=== PATIENT | male | born 1995 | race Caucasian/White ===

== ENCOUNTER 2017-01-31 10:16 | Emergency (ER) | payer MEDICARE, MEDICAID ==
[~2017-01-31] VITALS: Ht 180.3 cm; Wt 147.4 kg
[~2017-01-31 10:16] MED LIST: CEPH500C PO; CETI10TA17 PO; CLON-316 PO; DEXM10TA; ESCI20TA2 PO; ESCI20TA38 PO; FAMO20TA5 PO; GUAI120013 PO; HALO2TAB PO; HALO5TAB PO; LAMO100T69 PO; LAMO150T2 PO; LURA80TA PO; ONDA-42 SL; OXYC-12 PO; PRED20TA PO; SERT50TA; TOPI15CA6; VORT10TA PO
--- OUTSIDE RECORDS SUMMARY | 2017-01-31 10:24 | XMS REPORT | Continuity of Care Document ---
Author Author [facility] Organization [facility] Address Unknown Phone Unavailable Care Team Providers Care Umbrella Mender Name Role Phone Self, Referral PCP Unavailable Source Comments Some departments are not documenting in the electronic medical record. If you do not see the information that you expected, contact Release of Information in the Health Information Management department at [phone] for further assistance in locating additional records.[facility] Active Allergies and Adverse Reactions Allergen Noted Date Severity Reactions Comments Codeine 04/19/2010 High NAUSEA AND VOMITING Sulfa (Sulfonamide 07/05/2006 Medium Allergy recorded in SMS: Antibiotics) Sulfa~Reactions: HIVES Current Medications Prescription Sig. Disp. Refills Start End Date Status Date dexmethylphenidate ER (+) Take 5 mg by mouth Daily Active (FOCALIN XR) 5 mg PO With Lunch. capsule dexmethylphenidate Take 15 mg by mouth Every Active (FOCALIN XR) 15 mg PO Morning. capsule sertraline (ZOLOFT) 25 mg Take 25 mg by mouth Every Active PO tablet Morning. Take with zoloft 100 mg sertraline (ZOLOFT) 100 Take 100 mg by mouth Active mg PO tablet Every Morning. Take with zoloft 25 mg topiramate (TOPAMAX) 25 Take 25 mg by mouth Twice Active mg PO tablet Daily. Take every morning and bedtime olanzapine (ZYPREXA Take 2.5 mg by mouth At Active ZYDIS) 5 mg PO tablet Bedtime Daily. niacin 500 mg PO tablet Take 500 mg by mouth At Active Bedtime Daily. Active Problems Problem Noted Date Mood disorder (HCC) 04/20/2010 Social History Tobacco Use Types Packs/Day Years Used Date Never Smoker Alcohol Use Drinks/Week oz/Week Comments No Last Filed Vital Signs Vital Sign Reading Time Taken Blood Pressure 117/56 04/24/2010 10:00 AM CDT Pulse 68 04/24/2010 10:00 AM CDT Temperature 36.8 C (98.2 F) 04/24/2010 10:00 AM CDT Respiratory Rate - - Height 1.651 m (5' 5") 04/19/2010 3:22 PM CDT Weight 102.059 kg (225 lb) 04/19/2010 3:22 PM CDT Body Mass Index 37.44 04/19/2010 3:22 PM CDT Oxygen Saturation - - Plan of Care Health Maintenance Due Date Last Done Comments Physical (Comprehensive) 2001 Exam Pertussis Vaccine 2005 Tetanus Vaccine 10/27/2011 Influenza Vaccine 03/22/2017 Results from Last 3 Months Not on file
--- OUTSIDE RECORDS SUMMARY | 2017-01-31 10:25 | XMS REPORT | Continuity of Care Document ---
Author Author [facility] Address Unknown Phone Unavailable Allergies Active Description Code Type Severity Reaction Onset Reported/Identified Relationship to Patient Clinical Status Yes codeine [id number] Drug Allergy Mild UPSET STOMACH 02/06/2008 Yes codeine Drug Allergy N/A N/A 08/18/2014 Medications Problems Date Dx Coded Attending Type Code Diagnosis Diagnosed By 05/19/2013 JORDIN LOZANO, DARINEL Hamlin Ot 703.0 INGROWING NAIL 06/08/2013 DARINEL BRENNER MD Ot V58.31 ENCOUNTER FOR CHANGE OR REMOVAL OF SURGI 08/18/2014 JUNIOR HERNANDEZ 296.62 MO BIPOLAR I MIXED MODERATE 08/18/2014 JUNIOR HERNANDEZ 317 MENTAL RETARDATION-MILD 08/31/2014 Ot 278.00 08/31/2014 Ot 299.80 08/31/2014 Ot 300.3 08/31/2014 Ot 780.60 08/31/2014 Ot 784.0 08/31/2014 Ot 314.01 08/31/2014 Ot V58.69 08/31/2014 Ot V58.83 08/31/2014 DARINEL BRENNER MD Ot 703.0 08/31/2014 DARINEL BRENNER MD Ot V72.84 08/31/2014 PAMELA WHITLEY APRN Ot 789.06 ABDOMINAL PAIN, EPIGASTRIC 09/11/2014 Ot 278.00 09/11/2014 Ot 299.80 09/11/2014 Ot 300.3 09/11/2014 Ot 780.60 09/11/2014 Ot 784.0 09/11/2014 Ot 314.01 09/11/2014 Ot V58.69 09/11/2014 Ot V58.83 09/11/2014 DARINEL BRENNER MD Ot 703.0 09/11/2014 DARINEL BRENNER MD Ot V72.84 09/11/2014 Ot 465.9 ACUTE URI NOS 09/11/2014 Ot 786.2 COUGH 12/25/2014 Ot 278.00 12/25/2014 Ot 299.80 12/25/2014 Ot 300.3 12/25/2014 Ot 780.60 12/25/2014 Ot 784.0 12/25/2014 Ot 314.01 12/25/2014 Ot V58.69 12/25/2014 Ot V58.83 12/25/2014 JORDIN LOZANO, DARINEL Hamlin Ot 703.0 12/25/2014 JORDIN LOZANO, DARINEL Hamlin Ot V72.84 12/25/2014 PAMELA WHITLEY AUDIOVISUAL LIBRARIAN Ot 920 CONTUSION FACE/SCALP/NCK 12/25/2014 PAMELA WHITLEY AUDIOVISUAL LIBRARIAN Ot 959.01 HEAD INJURY, NOS 12/25/2014 PAMELA WHITLEY AUDIOVISUAL LIBRARIAN Ot E000.8 OTHER EXTERNAL CAUSE STATUS 12/25/2014 PAMELA WHITLEY AUDIOVISUAL LIBRARIAN Ot E849.7 ACCID IN RESIDENT INSTIT 12/25/2014 PAMELA WHITLEY AUDIOVISUAL LIBRARIAN Ot E917.4 STAT OB W/O SUB FALL NEC 05/06/2015 Ot 278.00 05/06/2015 Ot 299.80 05/06/2015 Ot 300.3 05/06/2015 Ot 780.60 05/06/2015 Ot 784.0 05/06/2015 Ot 314.01 05/06/2015 Ot V58.69 05/06/2015 Ot V58.83 05/06/2015 JORDIN LOZANO, DARINEL Hamlin Ot 703.0 05/06/2015 JORDIN LOZANO, DARINEL Hamlin Ot V72.84 09/17/2015 RAY LOZANO, ZACKERY Teran Ot F84.5 ASPERGER'S SYNDROME 09/17/2015 RAY LOZANO, ZACKERY Teran Ot S80.211A ABRASION, RIGHT KNEE, INITIAL ENCOUNTER 09/17/2015 RAY LOZANO, ZACKERY Teran Ot W01.0XXA FALL SAME LEV FROM SLIP/TRIP W/O STRIKE 09/17/2015 RAY LOZANO, ZACKERY Teran Ot Y92.512 SUPERMARKET, STORE OR MARKET PLACE 09/17/2015 ZACKERY BELL MD Ot Y99.8 OTHER EXTERNAL CAUSE STATUS 09/17/2015 Ot 278.00 09/17/2015 Ot 299.80 09/17/2015 Ot 300.3 09/17/2015 Ot 780.60 09/17/2015 Ot 784.0 09/17/2015 Ot 314.01 09/17/2015 Ot V58.69 09/17/2015 Ot V58.83 09/17/2015 JORDIN OLZANO, DARINEL Hamlin Ot 703.0 09/17/2015 JORDIN LOZANO, DARINEL Hamlin Ot V72.84 09/20/2015 Ot 278.00 09/20/2015 Ot 299.80 09/20/2015 Ot 300.3 09/20/2015 Ot 780.60 09/20/2015 Ot 784.0 09/20/2015 Ot 314.01 09/20/2015 Ot V58.69 09/20/2015 Ot V58.83 09/20/2015 JORDIN LOZANO, DARINEL Hamlin Ot 703.0 09/20/2015 JORDIN LOZANO, DARINEL Hamlin Ot V72.84 05/15/2016 Ot 314.01 ATTN DEFICIT W HYPERACT 05/15/2016 Ot V58.69 OT MED,LT,CURRENT USE 05/15/2016 Ot V58.83 ENCOUNTER FOR THERAPEUTIC DRUG MONITORIN 05/15/2016 JORDIN LOZANO, DARINEL Hamlin Ot 703.0 INGROWING NAIL 05/15/2016 JORDIN LOZANO, DARINEL Hamlin Ot V72.84 EXAM PRE-OPERATIVE NOS 05/15/2016 JENNIFER MOSELEY Ot F84.5 ASPERGER'S SYNDROME 05/15/2016 JENNIFER MOSELEY Ot R46.81 OBSESSIVE-COMPULSIVE BEHAVIOR 05/15/2016 JENNIFER MOSELEY Ot Z79.899 OTHER FCI (CURRENT) DRUG THERAPY 05/16/2016 JENNIFER MOSELEY Ot F84.5 ASPERGER'S SYNDROME 05/16/2016 JENNIFER MOSELEY Ot R46.81 OBSESSIVE-COMPULSIVE BEHAVIOR 05/16/2016 JENNIFER MOSELEY Ot Z79.899 OTHER FCI (CURRENT) DRUG THERAPY 05/21/2016 JENNIFER MOSELEY Ot F84.5 ASPERGER'S SYNDROME 05/21/2016 JENNIFER MOSELEY Ot R46.81 OBSESSIVE-COMPULSIVE BEHAVIOR 05/21/2016 JENNIFER MOSELEY Ot Z79.899 OTHER INCIDENT RESPONSE ENGINEER (CURRENT) DRUG THERAPY Procedures Code [place] [address] PSYCH DIAG EVAL W/MED SRVCS 09/03/2014 Results Test Result Range Complete urinalysis with reflex to culture - 05/15/16 11:45 Urine color determination YELLOW NRG Urine clarity determination SLIGHTLY CLOUDY NRG Urine pH measurement by test strip 7 5- 9 Specific gravity of urine by test strip 1.010 1.016-1.022 Urine protein assay by test strip, semi-quantitative NEGATIVE NEGATIVE Urine glucose detection by automated test strip NEGATIVE NEGATIVE Erythrocytes detection in urine sediment by light microscopy 2+ NEGATIVE Urine ketones detection by automated test strip NEGATIVE NEGATIVE Urine nitrite detection by test strip NEGATIVE NEGATIVE Urine total bilirubin detection by test strip NEGATIVE NEGATIVE Urine urobilinogen measurement by automated test strip (mass/volume) NORMAL NORMAL Urine leukocyte esterase detection by dipstick NEGATIVE NEGATIVE Automated urine sediment erythrocyte count by microscopy (number/high power field) [HPF] NRG Automated urine sediment leukocyte count by microscopy (number/high power field ) NONE NRG Bacteria detection in urine sediment by light microscopy NEGATIVE NRG Squamous epithelial cells detection in urine sediment by light microscopy NONE NRG Crystals detection in urine sediment by light microscopy NONE NRG Casts detection in urine sediment by light microscopy NONE NRG Mucus detection in urine sediment by light microscopy NEGATIVE NRG Complete urinalysis with reflex to culture NO NRG Urine drug screening test - 05/15/16 11:45 Urine phencyclidine detection by screening method NEGATIVE NEGATIVE Urine benzodiazepines detection by screening method NEGATIVE NEGATIVE Urine cocaine detection NEGATIVE NEGATIVE Urine amphetamines detection by screening method NEGATIVE NEGATIVE Urine methamphetamine detection by screening method NEGATIVE NEGATIVE Urine cannabinoids detection by screening method NEGATIVE NEGATIVE Urine opiates detection by screening method NEGATIVE NEGATIVE Urine barbiturates detection NEGATIVE NEGATIVE Screening urine tricyclic antidepressants detection NEGATIVE NEGATIVE Urine methadone detection by screening method NEGATIVE NEGATIVE Urine oxycodone detection NEGATIVE NEGATIVE Urine propoxyphene detection NEGATIVE NEGATIVE Urine buprenophrine screen NEGATIVE NEGATIVE Complete blood count (CBC) with automated white blood cell (WBC) differential - 05/15/16 12:00 Blood leukocytes automated count (number/volume) 9.8 10*3/ uL 4.3-11.0 Blood erythrocytes automated count (number/volume) 5.41 10*6 /uL 4.35-5.85 Venous blood hemoglobin measurement (mass/volume) 15.5 g/dL 13.3-17.7 Blood hematocrit (volume fraction) 44 % 40-54 Automated erythrocyte mean corpuscular volume 82 [foz_us] 80-99 Automated erythrocyte mean corpuscular hemoglobin (mass per erythrocyte) 29 pg 25-34 Automated erythrocyte mean corpuscular hemoglobin concentration measurement ( mass/volume) 35 g/dL 32-36 Automated erythrocyte distribution width ratio 12.7 % 10.0-14.5 Automated blood platelet count (count/volume) 251 10*3/uL 130-400 Automated blood platelet mean volume measurement 10.4 [foz_ us] 7.4-10.4 Automated blood neutrophils/100 leukocytes 76 % 42-75 Automated blood lymphocytes/100 leukocytes 15 % 12-44 Blood monocytes/100 leukocytes 8 % 0-12 Automated blood eosinophils/100 leukocytes 0 % 0-10 Automated blood basophils/100 leukocytes 1 % 0-10 Blood neutrophils automated count (number/volume) 7.4 10*3 1.8-7.8 Blood lymphocytes automated count (number/volume) 1.5 10*3 1.0-4.0 Blood monocytes automated count (number/volume) 0.8 10*3 0.0-1.0 Automated eosinophil count 0.0 10*3/uL 0.0-0.3 Automated blood basophil count (count/volume) 0.1 10*3/uL 0.0-0.1 Comprehensive metabolic panel - 05/15/16 12:00 Serum or plasma sodium measurement (moles/volume) 134 mmol/ L 135-145 Serum or plasma potassium measurement (moles/volume) 4.1 mmol/L 3.6-5.0 Serum or plasma chloride measurement (moles/volume) 100 mmol /L 98-107 Carbon dioxide 25 mmol/L 21-32 Serum or plasma anion gap determination (moles/volume) 9 mmol/L 5-14 Serum or plasma urea nitrogen measurement (mass/volume) 8 mg /dL 7-18 Serum or plasma creatinine measurement (mass/volume) 0.86 mg /dL 0.60-1.30 Serum or plasma urea nitrogen/creatinine mass ratio 9 NRG Serum or plasma creatinine measurement with calculation of estimated glomerular filtration rate > NRG Serum or plasma glucose measurement (mass/volume) 126 mg/dL 70-105 Serum or plasma calcium measurement (mass/volume) 9.6 mg/dL 8.5-10.1 Serum or plasma total bilirubin measurement (mass/volume) 0.4 mg/dL 0.1-1.0 Serum or plasma alkaline phosphatase measurement (enzymatic activity/volume) 138 U/L 40-136 Serum or plasma aspartate aminotransferase measurement (enzymatic activity/ volume) 20 U/L 5-34 Serum or plasma alanine aminotransferase measurement (enzymatic activity/volume ) 34 U/L 0-55 Serum or plasma protein measurement (mass/volume) 7.9 g/dL 6.4-8.2 Serum or plasma albumin measurement (mass/volume) 4.4 g/dL 3.2-4.5 Serum or plasma salicylates measurement (mass/volume) - 05/15/16 12:00 Serum or plasma salicylates measurement (mass/volume) < mg/ dL 5.0-20.0 Serum or plasma acetaminophen measurement (mass/volume) - 05/15/16 12:00 Serum or plasma acetaminophen measurement (mass/volume) < ug /mL 10-30 Serum or plasma ethanol measurement (mass/volume) - 05/15/16 12:00 Serum or plasma ethanol measurement (mass/volume) < mg/dL <10 Serum or plasma thyrotropin measurement by detection limit <=0.05 miu/l (units/ volume) - 05/15/16 12:00 Serum or plasma thyrotropin measurement by detection limit <=0.05 miu/l (units/ volume) 0.84 u[iU]/mL 0.35-4.94 Encounters ACCT No. Visit Date/Time Discharge Status Pt. Type Provider Facility Loc./Unit Complaint [id number] 08/18/2014 14:55:00 08/18/2014 23: 59:59 [facility] Outpatient JUNIOR HERNANDEZ
--- NOTE | 2017-01-31 10:47 | ED GI ---
General Chief Complaint: Foreign Body Stated Complaint: POSS F/O IN BOTTOM Nursing Triage Note: PT STATES THAT HE SAT IN A CHAIR WITH HIS UNDERWARE ON AND A TOY OR A SPRING WENT UP HIS RECTUM. STATES HE DID HAVE A BM AFTER BUT IS UNSURE IF ANYTHING IS STILL THERE. Sepsis Screen: No Definite Risk Source of Information: Patient Exam Limitations: No Limitations History of Present Illness Time Seen By Provider: 10:45 Initial Comments 21-year-old autistic gentleman presents to the ER accompanied by his mother with reports of a possible foreign body in his rectum. Initially states that this was a spring out of the recliner. Then, he states that he was sitting in the recliner and he sat on one of his younger sister's action figures which shot some sort of a toy through his underwear into his anus. He states this must of been [place] made due to the force with which shot through his underwear into his anus, it couldn't have been Citizen [place] made he states. He did have a bowel movement after this happened this morning but states he did not see the action figure,. He is uncertain as to whether or not it is still in him. Timing/Duration: 4-6 Hours Severity/Quality: Moderate Radiation: No Radiation Activities at Onset: None Associated Symptoms: Nausea/Vomiting Allergies and Home Medications Allergies Coded Allergies: Codeine (Verified Adverse Reaction, Mild, UPSET STOMACH, 02/06/08) Home Medications Cetirizine Hcl 10 Mg Tablet, 10 MG PO DAILY, (Reported) Clonidine Hcl 0.1 Mg Tab.er.12h, 0.1 MG PO TID, (Reported) Famotidine 20 Mg Tablet, 20 MG PO DAILY, (Reported) Guaifenesin 1,200 Mg Tbmp.12hr, 1,200 MG PO BID, (Reported) Haloperidol 5 Mg Tablet, 1 EACH PO UD, (Reported) Lamotrigine 150 Mg Tablet, 150 MG PO DAILY, (Reported) Lurasidone Hcl 80 Mg Tablet, 40 MG PO BID, (Reported) Prednisone 20 Mg Tablet, 20 MG PO DAILY, (Reported) Vortioxetine Hydrobromide 10 Mg Tablet, 10 MG PO DAILY, (Reported) Review of Systems Constitutional: see HPI EENTM: No Symptoms Reported Respiratory: No Symptoms Reported Cardiovascular: No Symptoms Reported Gastrointestinal: See HPI, Denies Abdominal Pain, Denies Constipated, Denies Diarrhea, Denies Nausea Genitourinary: No Symptoms Reported Musculoskeletal: no symptoms reported Skin: no symptoms reported Psychiatric/Neurological: No Symptoms Reported Endocrine: No Symptoms Reported Hematologic/Lymphatic: No Symptoms Reported Past Pnxslbn-Tykhls-Orkdti Hx Patient Social History Alcohol Use: Denies Use Recreational Drug Use: No Smoking Status: Never a Smoker Recent Foreign Travel: No Contact w/Someone Who Travel: No Recent Infectious Disease Expo: No Recent Hopitalizations: Yes (for autisim) Seasonal Allergies Seasonal Allergies: No Surgeries HX Surgeries: Yes (t and a , tubes in ears) Surgeries: Adenoidectomy, Ear Surgery, Tonsillectomy Respiratory Hx Respiratory Disorders: No Cardiovascular Hx Cardiac Disorders: No Neurological Hx Neurological Disorders: No Reproductive System Hx Reproductive Disorders: No Genitourinary Hx Genitourinary Disorders: No Gastrointestinal Hx Gastrointestinal Disorders: No Musculoskeletal Hx Musculoskeletal Disorders: Yes (INGROWN TOENAIL) Endocrine Hx Endocrine Disorders: No HEENT HX ENT Disorders: No Cancer Hx Cancer: No Psychosocial Hx Psychiatric Problems: Yes (asperger high functioning autisum. OCD) Behavioral Health Disorders: ODD, Depression Integumentary HX Skin/Integumentary Disorder: No Blood Transfusions Hx Blood Disorders: No Adverse Reaction to a Blood Tr: No Family Medical History Significant Family History: No Pertinent Family Hx Physical Exam Vital Signs VS - Last 72 Hours, by Label 01/31/17 10:31 Temp 97.0 Pulse 73 Resp 20 B/P (MAP) 136/79 Pulse Ox 98 O2 Delivery Room Air Capillary Refill : Less Than 3 Seconds General Appearance: WD/WN, no apparent distress, obese, other (autistic) HEENT: PERRL/EOMI, normal ENT inspection Neck: non-tender, full range of motion Respiratory: no respiratory distress, no accessory muscle use Cardiovascular: regular rate, rhythm, no murmur Gastrointestinal: normal bowel sounds, non tender, soft Genital/Rectal: other (no blood at the anus. There is a subacute anal fissure without bleeding. This may have been a source of pain that caused him to believes something went up his bottom.) Extremities: normal range of motion, no calf tenderness Neurologic/Psychiatric: alert, normal mood/affect, oriented x 3 Skin: normal color, warm/dry Progress/Results/Core Measures Results/Orders Vital Signs/I&O Vital Sign - Last 12Hours 01/31/17 10:31 Temp 97.0 Pulse 73 Resp 20 B/P (MAP) 136/79 Pulse Ox 98 O2 Delivery Room Air Blood Pressure Mean: 98 Departure Impression Impression: Primary Impression: Autism disorder Additional Impressions: possible rectal foreign body Anal fissure Disposition: HOME, SELF-CARE Condition: Stable Departure-Patient Inst. Decision time for Depature: 10:54 Referrals: JUAN PETERSON MD (PCP/Family) Primary Care Physician Patient Instructions: NO INSTRUCTIONS GIVEN Add. Discharge Instructions: 1. Try to observe his bowel movements for the next 24 hours or so. You would be looking for blood or action figure or Toy or whatever may have been inserted. I do not seen anything on the x-ray. His anus does have a small tear likely from constipation and appears to be older (did not just happen today ). Make sure that he drinks pretty of fluids, eat a high-fiber diet and if he has pain with bowel movements, use Colace to soften the stools 2. All discharge instructions reviewed with patient and/or family. Voiced understanding. Copy Copies To 1: JUAN PETERSON MD, PETER J APRN Jan 31, 2017 10:47
[2017-01-31 10:59] VITALS: BP 136/79
--- NOTE | 2017-01-31 11:18 | Diagnostic Imaging Report ---
Upright and supine views of the abdomen. INDICATION: Checking for foreign body in the rectum. FINDINGS: There is no radiopaque foreign body seen in the abdomen or pelvis. No pneumoperitoneum or significant air-fluid levels to suggest bowel obstruction. Moderate amount of fecal material is seen in the colon mostly in the cecum to the right hepatic flexure. IMPRESSION: No radiopaque foreign body is seen. Dictated by: Dictated on workstation # [id number]
== END 2017-01-31 10:59 | disposition home or self-care (01) ==
LOC: EDUNIT# 10:16 → ER 10:19
DX: K60.2 Anal fissure, unspecified (principal); F84.5 Asperger's syndrome; Z79.899 Other long term (current) drug therapy
CPT/HCPCS: 74020; 99282